=== PATIENT | male | born 1985 | race Caucasian/White ===

== ENCOUNTER 2017-02-22 22:56 | Emergency (ER) | payer OTHER ==
[2017-02-22] MEDS ORDERED: KETOROLAC TROMETHAMINE 60 MG/2 ML VIAL IM ONE (23:17)
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
[2017-02-22] MEDS ORDERED: KETOROLAC TROMETHAMINE 60 MG/2 ML VIAL ONE (23:31)
[2017-02-22 23:39] VITALS: BP 120/67; PULSE 85; TEMP 97.9; BMI 30.3
== END 2017-02-23 00:41 | disposition home or self-care (01) ==
LOC: FER 22:56
PROC: 3E0233Z Introduction of Anti-inflammatory into Muscle, Percutaneous Approach (ICD-10-PCS; principal; 2017-02-22)
DX: S39.012A Strain of muscle, fascia and tendon of lower back, initial encounter (principal); X58.XXXA Exposure to other specified factors, initial encounter; Y93.89 Activity, other specified; Y92.9 Unspecified place or not applicable; Y99.0 Civilian activity done for income or pay
CPT/HCPCS: 72100-TC; 99282-25

== ENCOUNTER 2018-12-30 11:43 | Emergency (ER) | payer BC, OTHER ==
--- NOTE | 2018-12-30 11:48 | PDOC ---
History of Present Illness - General Chief Complaint: Injury Stated Complaint: LEFT TOE INJURY Time Seen by Provider: 12/30/18 11:46 - History of Present Illness Initial Comments: 12/30/18 11:46 Mr. Valdivia is a 33 yo male w/ no significant pmh who presents for evaluation of Left great toe injury. Patient reports he dropped a gait on it yesterday. Presents today for evaluation of injury to make sure nothing is broken. Has no other complaints at this time. The patient denies chest pain, shortness of breath, headache and dizziness. Denies fever, chills, nausea, vomit, diarrhea and constipation. Denies dysuria, frequency, urgency and hematuria. Past History - Past Medical History Allergies/Adverse Reactions: Allergies Allergy/AdvReac Type Severity Reaction Status Date / Time No Known Allergies Allergy Verified 12/30/18 11:46 Home Medications: Ambulatory Orders NK [No Known Home Medication] 02/22/17 - Immunization History Td Vaccination: Yes (STATES 2 YEARS AGO) - Suicide/Smoking/Psychosocial Hx Smoking Status: No Smoking History: Never smoked Number of Cigarettes Smoked Daily: 0 Hx Alcohol Use: No Drug/Substance Use Hx: No Substance Use Type: None Review of Systems - Review of Systems Comments:: 12/30/18 11:48 GENERAL/CONSTITUTIONAL: No fever or chills. No weakness. HEAD, EYES, EARS, NOSE AND THROAT: No change in vision. No ear pain or discharge. No sore throat. CARDIOVASCULAR: No chest pain or shortness of breath RESPIRATORY: No cough, wheezing, or hemoptysis. GASTROINTESTINAL: No nausea, vomiting, diarrhea or constipation. GENITOURINARY: No dysuria, frequency, or change in urination. MUSCULOSKELETAL: +Left great toe pain at impact site. SKIN: No rash NEUROLOGIC: No headache, vertigo, loss of consciousness, or change in strength/ sensation. ENDOCRINE: No increased thirst. No abnormal weight change HEMATOLOGIC/LYMPHATIC: No anemia, easy bleeding, or history of blood clots. ALLERGIC/IMMUNOLOGIC: No hives or skin allergy. *Physical Exam - Physical Exam Comments: 12/30/18 11:48 GENERAL: Awake, alert, and fully oriented, in no acute distress HEAD: No signs of trauma, normocephalic, atraumatic EYES: PERRLA, EOMI, sclera anicteric, conjunctiva clear ENT: Auricles normal inspection, hearing grossly normal, nares patent, oropharynx clear without exudates. Moist mucosa NECK: Normal ROM, supple, no lymphadenopathy, JVD, or masses LUNGS: No distress, speaks full sentences, clear to auscultation bilaterally HEART: Regular rate and rhythm, normal S1 and S2, no murmurs, rubs or gallops, peripheral pulses normal and equal bilaterally. ABDOMEN: Soft, nontender, normoactive bowel sounds. No guarding, no rebound. No masses EXTREMITIES: Normal inspection, Normal range of motion, no edema. No clubbing or cyanosis. NEUROLOGICAL: Cranial nerves II through XII grossly intact. Normal speech, normal gait, no focal sensorimotor deficits SKIN: Warm, Dry, normal turgor, no rashes or lesions noted. Medical Decision Making - Medical Decision Making 12/30/18 12:17 Mr. Valdivia is a 33 yo male w/ pmh as described who presents for evaluation of L great toe injury. XR revealed small fracture at DIP joint (non-displaced). Patient discharged with hard shoe and care instructions. *DC/Admit/Observation/Transfer Diagnosis at time of Disposition: Toe fracture, left Qualifiers: Encounter type: initial encounter Toe: great toe Fracture type: closed Phalanx : unspecified phalanx Fracture alignment: nondisplaced Qualified Code(s): S92.405A - Nondisplaced unspecified fracture of left great toe, initial encounter for closed fracture - Discharge Dispostion Disposition: HOME Condition at time of disposition: Good - Referrals Referrals: Sabas Quinn [Primary Care Provider] - - Patient Instructions Printed Discharge Instructions: DI for Toe Fracture Additional Instructions: You were evaluated today and found to have a small fracture of your L great toe by Xray. You may wear the hard shoe provided. Take over the counter motrin or tylenol for pain control. Return to ER if any fever, chills, or other concerning findings. - Post Discharge Activity
[2018-12-30 12:07] VITALS: BP 117/66; PULSE 70; TEMP 98.3; BMI 31.8
--- NOTE | 2018-12-30 12:19 | PDOC ---
Attending Attestation - Resident Resident Name: Renny Lopez - ED Attending Attestation I have performed the following: I have examined & evaluated the patient, The case was reviewed & discussed with the resident, I agree w/resident's findings & plan, Exceptions are as noted - HPI HPI: 33 yo M presents with R great toe pain after dropping a heavy gate on it. He has been ambulating on the foot for the past 2 days, but presents due to pain and significant bruising. No other injuries. - Physicial Exam PE: GENERAL: Awake, alert, and fully oriented, in no acute distress HEAD: No signs of trauma EXTREMITIES: R great toe with ecchymosis, pain on ROM, tenderness to the interphalangeal joint. Remainder of extremities with normal range of motion, no edema. No clubbing or cyanosis. No cords, erythema, or tenderness NEUROLOGICAL: Cranial nerves II through XII grossly intact. Normal speech, normal gait. Motor and sensation intact SKIN: Warm, Dry, normal turgor, no rashes or lesions noted. - Medical Decision Making XR c/w fracture. Placed in hard orthopedic shoe. 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
== END 2018-12-30 12:20 | disposition home or self-care (01) ==
LOC: FER 11:43
DX: S92.405A Nondisplaced unspecified fracture of left great toe, initial encounter for closed fracture (principal); W20.8XXA Other cause of strike by thrown, projected or falling object, initial encounter; Y93.89 Activity, other specified; Y92.89 Other specified places as the place of occurrence of the external cause
CPT/HCPCS: 73660-TC-LT-FY; 99281-25

== ENCOUNTER 2021-03-12 10:47 | Emergency (ER) | payer OTHER ==
[2021-03-12 10:59] VITALS: BP 121/78; PULSE 100; TEMP 98.8; BMI 32.1
[2021-03-12] MEDS ORDERED: IBUPROFEN 600 MG TABLET (FP) PO ONE ×2 (11:06→11:09)
[2021-03-12] MEDS ORDERED: LIDOCAINE 5% TOPICAL PATCH TP ONE ×2 (11:06→12:39)
[2021-03-12] MEDS ORDERED: LIDOCAINE 5% TOPICAL PATCH ONE ×2 (11:09→12:39)
== END 2021-03-12 11:23 | disposition home or self-care (01) ==
LOC: JER 10:47
DX: M54.5 Low back pain (principal)
CPT/HCPCS: 99283-25

== ENCOUNTER 2021-08-22 07:36 | Emergency (ER) | payer OTHER ==
[2021-08-22 07:51] VITALS: BP 129/83; PULSE 89; TEMP 98.3; BMI 33.0
[2021-08-22] MEDS ORDERED: IBUPROFEN 600 MG TABLET (FP) PO ONE ×2 (08:05→08:09)
== END 2021-08-22 08:31 | disposition home or self-care (01) ==
LOC: JERFT 07:36
DX: S83.411A Sprain of medial collateral ligament of right knee, initial encounter (principal); X50.9XXA Other and unspecified overexertion or strenuous movements or postures, initial encounter
CPT/HCPCS: 73562-TC-RT-FY; 99283-25